=== PATIENT | male | born 1985 | race African-American/Black ===

== ENCOUNTER 2019-03-22 04:57 | Inpatient (IN) ==
[2019-03-22] MEDS ORDERED: methylPREDNISolone SOD SUC 125 MG/2 ML VIAL IV STA ×2 (05:38→06:30)
[2019-03-22] MEDS ORDERED: ALBUTEROL/IPRATROPIUM 3 ML NEB RESP TX STA (05:38)
[2019-03-22 05:46] LABS: Basophils % 0.2 % (0.0-0.8); Eosinophils # 0.2 10*3/uL (0.0-0.87); Eosinophils % 1.7 % (0.00-10.9); Hematocrit 50.9 VOL% (42.0-52.0); Hemoglobin 17.7 GM/DL (14.0-18.0); Immature Granulocytes % 0.2 %; Immature Granulocytes Absolute 0.02 #; Lymphocytes # 0.9 10*3/uL (1.4-4.0); Lymphocytes % 9.1 % (21.2-54.2); Mean Corpuscular HGB Conc 34.8 GM/DL (32-36); Mean Corpuscular Volume 98.6 FL (87-102); Mean Platelet Volume 11.2 FL (9.6-12.0); Monocytes % 7.1 % (1.7-12.7); Neutrophils % 81.7 % (38.7-73.9); Platelet Count 208 T/CUMM (130-400); Red Blood Count 5.16 MC/CUMM (3.8-5.5); Red Cell Distribution Width 10.7 % (9.3-17.3); White Blood Count 9.7 T/CUMM (4-12)
[2019-03-22 06:03] LABS: Albumin 4.8 G/DL (3.4-5.0); Calcium 9.6 MG/DL (8.5-10.1); Osmolality,Calculated 279.4 MOS/KG (273-304); Total Protein 7.9 G/DL (6.4-8.3)
[2019-03-22] MEDS ORDERED: ALBUTEROL NEB SOLN 5 MG/ML 20 ML/BOTTLE CONT NEB STA (06:30)
[2019-03-22] MEDS ORDERED: ONDANSETRON 4 MG/2 ML VIAL IV PRN (08:16)
[2019-03-22] MEDS: PANTOPRAZOLE 40 MG TABLET PO SCH (10:34)
[2019-03-22] MEDS: ENOXAPARIN 40 MG/0.4 ML SYRINGE SUBCUT SCH (10:35)
[2019-03-22] MEDS: ALBUTEROL 2.5 MG/3 ML NEB RESP TX SCH ×4 (10:55→22:39)
[2019-03-22 15:20] LABS: Apearance,Urine CLEAR (Clear); Bilirubin,Urine Negative (Negative); Blood, Urine Negative (Negative); Glucose,Urine (UA) Negative (Negative); Ketones,Urine 20 mg/dL (Negative); Mucus,Urine Few /LPF (Occasional); Nitrite,Urine Negative (Negative); Protein,Urine Negative; RBC,Urine 5 /HPF (0-4); Urine Color Amber (Yellow); Urine Specific Gravity 1.026 (1.001-1.035); WBC,Urine 1 /HPF (0-6)
[2019-03-22] MEDS: methylPREDNISolone SOD SUC 125 MG/2 ML VIAL IV SCH ×2 (16:03→20:24)
[2019-03-22 20:52] LABS: Barbiturates Screen,Urine Negative (Negative); Benzodiazepines Screen,Urine Negative (Negative); Cannabinoid Screen,Urine Positive (Negative); Opiate Screen,Urine Positive (Negative); Phencyclidine Screen,Urine Negative (Negative)
[2019-03-23] MEDS: ALBUTEROL 2.5 MG/3 ML NEB RESP TX SCH ×5 (02:27→19:36)
[2019-03-23] MEDS: methylPREDNISolone SOD SUC 125 MG/2 ML VIAL IV SCH ×2 (04:42→08:53)
[2019-03-23 04:47] LABS: Basophils % 0.1 % (0.0-0.8); Hemoglobin 15.7 GM/DL (14.0-18.0); Immature Granulocytes % 0.2 %; Immature Granulocytes Absolute 0.03 #; Lymphocytes # 0.7 10*3/uL (1.4-4.0); Lymphocytes % 5.4 % (21.2-54.2); Mean Corpuscular HGB Conc 34.9 GM/DL (32-36); Mean Corpuscular Volume 99.1 FL (87-102); Mean Platelet Volume 11.4 FL (9.6-12.0); Monocytes % 3.7 % (1.7-12.7); Neutrophils % 90.6 % (38.7-73.9); Platelet Count 213 T/CUMM (130-400); Red Blood Count 4.54 MC/CUMM (3.8-5.5); White Blood Count 13.6 T/CUMM (4-12)
[2019-03-23 05:08] LABS: Hypochromasia 1+; Lymphocytes 6 % (20-55); Platelet Estimate Adequate; Segmented Neutrophils 93 % (50-85); Total Cells Counted 100
[2019-03-23 05:15] LABS: Albumin 4.2 G/DL (3.4-5.0); Bilirubin,Total 0.6 MG/DL (0.2-1.0); Calcium 9.7 MG/DL (8.5-10.1); Osmolality,Calculated 283.4 MOS/KG (273-304); Total Protein 7.5 G/DL (6.4-8.3)
[2019-03-23] MEDS: ENOXAPARIN 40 MG/0.4 ML SYRINGE SUBCUT SCH (08:54)
[2019-03-23] MEDS: PANTOPRAZOLE 40 MG TABLET PO SCH (08:54)
[2019-03-23] MEDS: BUDESONIDE/FORMOTEROL 80-4.5 INHALER 6.9 GM INH SCH ×2 (12:30→20:53)
[2019-03-23] MEDS: methylPREDNISolone SOD SUC 40 MG/1 ML VIAL IV SCH (16:38)
[2019-03-24] MEDS: ALBUTEROL 2.5 MG/3 ML NEB RESP TX SCH ×7 (00:01→23:30)
[2019-03-24] MEDS: methylPREDNISolone SOD SUC 40 MG/1 ML VIAL IV SCH ×3 (01:36→16:00)
[2019-03-24 05:43] LABS: Basophils % 0.1 % (0.0-0.8); Hematocrit 48.4 VOL% (42.0-52.0); Hemoglobin 16.4 GM/DL (14.0-18.0); Immature Granulocytes % 0.5 %; Immature Granulocytes Absolute 0.08 #; Lymphocytes # 0.7 10*3/uL (1.4-4.0); Lymphocytes % 3.8 % (21.2-54.2); Mean Corpuscular HGB Conc 33.9 GM/DL (32-36); Mean Corpuscular Volume 100.4 FL (87-102); Mean Platelet Volume 11.8 FL (9.6-12.0); Monocytes % 2.5 % (1.7-12.7); Neutrophils % 93.1 % (38.7-73.9); Platelet Count 216 T/CUMM (130-400); Red Blood Count 4.82 MC/CUMM (3.8-5.5); Red Cell Distribution Width 11.3 % (9.3-17.3); White Blood Count 17.5 T/CUMM (4-12)
[2019-03-24 06:06] LABS: Albumin 4.1 G/DL (3.4-5.0); Calcium 9.7 MG/DL (8.5-10.1); Osmolality,Calculated 279.5 MOS/KG (273-304); Total Protein 7.7 G/DL (6.4-8.3)
[2019-03-24 06:07] LABS: Lymphocytes 3 % (20-55); Macrocytosis Slight; Platelet Estimate Normal; Segmented Neutrophils 96 % (50-85); Total Cells Counted 100
[2019-03-24 06:08] LABS: Stomatocytes Slight; Target Cells Slight
[2019-03-24] MEDS: ACETAMINOPHEN 325 MG TABLET PO PRN ×2 (10:03→17:37)
[2019-03-24] MEDS: ENOXAPARIN 40 MG/0.4 ML SYRINGE SUBCUT SCH (10:04)
[2019-03-24] MEDS: PANTOPRAZOLE 40 MG TABLET PO SCH (10:04)
[2019-03-24] MEDS: BUDESONIDE/FORMOTEROL 80-4.5 INHALER 6.9 GM INH SCH ×2 (10:05→21:00)
[2019-03-24] MEDS: PSEUDOEPHEDRINE 30 MG TABLET PO SCH ×3 (12:02→23:40)
[2019-03-25] MEDS: methylPREDNISolone SOD SUC 40 MG/1 ML VIAL IV SCH ×3 (02:18→16:53)
[2019-03-25] MEDS: ALBUTEROL 2.5 MG/3 ML NEB RESP TX SCH ×6 (03:05→23:43)
[2019-03-25] MEDS: PSEUDOEPHEDRINE 30 MG TABLET PO SCH ×3 (06:03→21:23)
[2019-03-25] MEDS: ACETAMINOPHEN 325 MG TABLET PO PRN (08:49)
[2019-03-25] MEDS: PANTOPRAZOLE 40 MG TABLET PO SCH (08:50)
[2019-03-25] MEDS: ENOXAPARIN 40 MG/0.4 ML SYRINGE SUBCUT SCH (08:50)
[2019-03-25] MEDS: BUDESONIDE/FORMOTEROL 80-4.5 INHALER 6.9 GM INH SCH ×2 (08:51→21:23)
[2019-03-26] MEDS: methylPREDNISolone SOD SUC 40 MG/1 ML VIAL IV SCH ×2 (01:22→09:00)
[2019-03-26] MEDS: ALBUTEROL 2.5 MG/3 ML NEB RESP TX SCH ×2 (03:04→07:15)
[2019-03-26] MEDS: ENOXAPARIN 40 MG/0.4 ML SYRINGE SUBCUT SCH (09:01)
[2019-03-26] MEDS: PSEUDOEPHEDRINE 30 MG TABLET PO SCH (09:01)
[2019-03-26] MEDS: PANTOPRAZOLE 40 MG TABLET PO SCH (09:01)
[2019-03-26] MEDS: BUDESONIDE/FORMOTEROL 80-4.5 INHALER 6.9 GM INH SCH (09:01)
[2019-03-26 12:04] VITALS: BP 104/68
== END 2019-03-26 12:15 | disposition home or self-care (01) | DRG 203 ==
LOC: N.EDINP 04:57 → N.ED 04:57 → SUATTDRO 08:15 → N.2E 08:53
PROVIDERS: ADMIT Internal Medicine; ATTEND Internal Medicine